=== PATIENT | female | born 1975 | race Caucasian/White ===

== ENCOUNTER → 2019-12-06 | Outpatient (CLI) | payer BC ==
[2019-12-06 15:33] LABS: Basophils % (A) 1 %; Eosinophils # (A) 0.2 k/uL (0-0.7); Eosinophils % (A) 3 %; HCT 43.6 % (34.0-46.0); HGB 14.5 gm/dL (11.4-16.0); Lymphocytes # (A) 2.7 k/uL (1.0-4.8); Lymphocytes % (A) 39 %; MCH 31.8 pg (25.0-35.0); MCHC 33.2 g/dL (31.0-37.0); MCV 95.6 fL (80.0-100.0); Mean Platelet Volume 8.1; Monocytes # (A) 0.3 k/uL (0-1.0); Monocytes % (A) 5 %; Neutrophils # (A) 3.4 k/uL (1.3-7.7); Neutrophils % (A) 50 %; Platelet Count 214 k/uL (150-450); RBC 4.56 m/uL (3.80-5.40); RDW 11.7 % (11.5-15.5); WBC 6.8 k/uL (3.8-10.6)
[2019-12-07 00:45] LABS: Erythrocyte Sedimentation Rate 14 mm/Hr (0-20)
[2019-12-07 05:54] LABS: African American GFR (CKD) 127.6 (60.0-200.0); Albumin 4.5 g/dL (3.80-4.90); Albumin/Globulin Ratio 1.96 (1.60-3.17); BUN/Creat Ratio 21.67 Ratio (12.00-20.00); C Reactive Protein 0.4 mg/dL (0.0-0.8); Calcium 9.8 mg/dL (8.7-10.3); Globulin 2.3 g/dL (1.6-3.3); Non-African American GFR(CKD) 110.1 (60.0-200.0); Potassium 4.2 mmol/L (3.5-5.5); Total Bilirubin 0.3 mg/dL (0.3-1.2); Total Protein 6.8 g/dL (6.2-8.2)
== END | disposition home or self-care (01) ==
LOC: LABWHC1 13:59
PROVIDERS: ATTEND Nurse Practitioner Acute Care
DX: M35.3 Polymyalgia rheumatica (principal); E55.9 Vitamin D deficiency, unspecified
CPT/HCPCS: 36415; 80053; 82306; 82550; 82607; 85025; 85652; 86038; 86140

== ENCOUNTER → 2020-02-09 | Outpatient (CLI) | payer BC ==
--- NOTE | 2020-02-10 07:06 | CT ---
EXAMINATION TYPE: CT angio head DATE OF EXAM: 02/09/2020 4:45 PM COMPARISON: None. HISTORY: CHOI, LEFT NECK PAIN, BLURRY VISION CT DLP: 1435.6 mGycm Automated exposure control for dose reduction was used. TECHNIQUE: Performed without and with IV Contrast, patient injected with 100 mL of Isovue 370. 3D reconstructed images are created on an independent workstation and reviewed. FINDINGS: Codominant vertebrobasilar system. Vertebral arteries are patent to basilar junction. Hypoplastic pradeep ateral posterior communicating arteries. Images of the anterior circulation show small caliber but patent anterior communicating artery. No si gnificant focal stenosis or aneurysmal change is present. Noncontrast CT shows no acute intracranial hemorrhage or midline shift. Ventricles and sulci are with in normal limits in size. Wills-white matter differentiation is maintained. IMPRESSION: No aneurysmal change is evident. Unremarkable study.
== END | disposition home or self-care (01) ==
LOC: RADCTMAIN 15:28
PROVIDERS: ATTEND Psychiatry & Neurology Neurology
DX: R93.0 Abnormal findings on diagnostic imaging of skull and head, not elsewhere classified (principal); Z88.0 Allergy status to penicillin; Z88.5 Allergy status to narcotic agent
CPT/HCPCS: 70496; Q9967